=== PATIENT | male | born 1980 | race Caucasian/White ===

== ENCOUNTER 2020-01-02 16:16 | Emergency (ER) | payer BC ==
[~2020-01-02] VITALS: Ht 167.6 cm; Wt 82.3 kg
[~2020-01-02 16:16] MED LIST: ALBU18HF2 INH; ALBU8.5H8 IH; AZIT250T PO; MECL-183 PO; ONDA4TAB6 PO; ONDA8TAB13 PO; ONDA8TAB9 PO; SUMA100T PO
[2020-01-02 18:21] VITALS: BP 122/78
== END 2020-01-02 18:23 | disposition home or self-care (01) ==
LOC: ER 16:17
DX: S92.511A Displaced fracture of proximal phalanx of right lesser toe(s), initial encounter for closed fracture (principal); M79.89 Other specified soft tissue disorders; M79.674 Pain in right toe(s); J45.909 Unspecified asthma, uncomplicated; G89.29 Other chronic pain; Z87.442 Personal history of urinary calculi; Z98.890 Other specified postprocedural states; Z88.1 Allergy status to other antibiotic agents; Z91.010 Allergy to peanuts; Z91.018 Allergy to other foods; Z79.2 Long term (current) use of antibiotics; Z79.899 Other long term (current) drug therapy; X58.XXXA Exposure to other specified factors, initial encounter; Y93.89 Activity, other specified; Y92.89 Other specified places as the place of occurrence of the external cause; Y99.8 Other external cause status
CPT/HCPCS: 73630; 99283

== ENCOUNTER 2021-04-19 11:37 | Day surgery (SDC) | payer OTHER ==
[2021-04-17 11:20] LABS: EOSINOPHILS # (AUTO) 0.2 X10'3 (0-0.9); MONOCYTES # (AUTO) 0.5 X10'3 (0-0.9)
[2021-04-17 11:22] LABS: BASOPHILS # (AUTO) 0.1 X10'3 (0-0.2); BASOPHILS % (AUTO) 1.3 % (0-1); EOSINOPHILS % (AUTO) 3.4 % (0-6); LYMPHOCYTES % (AUTO) 36.4 % (21-51); MEAN CORPUSCULAR HEMOGLOBIN 29.3 PG (27.0-31.0); MEAN CORPUSCULAR HGB CONC 34.7 g/dL (33.0-36.5); MEAN CORPUSCULAR VOLUME 84.6 FL (78-98); MEAN PLATELET VOLUME 6.8 FL (7.4-10.4); MONOCYTES % (AUTO) 8.9 % (2-12); NEUTROPHILS # (AUTO) 2.7 X10'3 (1.8-7.7); PRE OP HEMATOCRIT 44.6 % (42.0-52.0); PRE OP HEMOGLOBIN 15.5 g/dL (14.0-17.9); PRE OP PLATELET COUNT 330 X10'3 (140-440); RED BLOOD COUNT 5.28 X10'6 (4.70-6.10); RED CELL DISTRIBUTION WIDTH 12.8 % (11.5-14.5)
[2021-04-17 11:39] LABS: ALBUMIN 4.2 G/DL (3.4-5.0); ALBUMIN/GLOBULIN RATIO 1.4 (1.1-1.5); ALKALINE PHOSPHATASE 87 IU/L (46-116); BLOOD UREA NITROGEN 19 MG/DL (7-18); BUN/CREATININE RATIO 19.8 (5.4-32.0); CALCIUM 8.6 MG/DL (8.5-10.1); CHLORIDE 104 MMOL/L (99-107); CREATININE 0.96 MG/DL (0.60-1.10); PRE OP ALT 36 U/L (30-65); PRE OP ANION GAP 10 (8-16); PRE OP AST 16 U/L (10-37); PRE OP GLUCOSE 101 MG/DL (70-104); PRE OP POTASSIUM 4.3 MMOL/L (3.4-5.1); PRE OP SODIUM 141 MMOL/L (135-145); TOTAL CARBON DIOXIDE 26.9 MMOL/L (24-32); TOTAL PROTEIN 7.1 G/DL (6.4-8.2); eGFR 86 ML/MIN
[2021-04-19] VITALS (17 sets, daily range): BP systolic 118–148; BP diastolic 69–98
[~2021-04-19] VITALS: Ht 167.6 cm; Wt 84.4 kg
[~2021-04-19 11:37] MED LIST changes: -ALBU18HF2 INH; -ALBU8.5H8 IH; +ASCO-407 PO; -AZIT250T PO; -MECL-183 PO; -ONDA4TAB6 PO; -ONDA8TAB13 PO; -ONDA8TAB9 PO; -SUMA100T PO; +ceFOXitin 2GM-NS 100mL ADDvant 100 ML IV ONE; +famotidine 20mg tablet PO ONE; +ringers solution, lacted 1,000 ML IV SCH
[2021-04-19] MEDS ORDERED: proCHLORperazine 10 MG/2 ml inj IV PRN (14:10)
[2021-04-19] MEDS ORDERED: ondansetron/PF 4mg/2ml inj IV PRN (14:10)
[2021-04-19] MEDS ORDERED: meperidine/PF 25mg/ml syringe IV PRN ×3 (14:10)
[2021-04-19] MEDS ORDERED: morphine 4 MG/ML inj SYRINge IV PRN (14:10)
[2021-04-19] MEDS ORDERED: ringers solution, lacted 1,000 ML IV SCH (14:10)
[2021-04-19] MEDS ORDERED: morphine 2 MG/ML inj. syringe IV PRN (14:10)
[2021-04-19] MEDS ORDERED: fentaNYL/PF 50MCG/1 ML 2ML syringe ONE ×3 (14:25→16:48)
[2021-04-19] MEDS ORDERED: midazolam 1 mg/ML 2ml injection ONE (14:25)
[2021-04-19] MEDS ORDERED: propofol inj 20 ML IV ONE (14:26)
[2021-04-19] MEDS ORDERED: rocuronium 10mg/ml inj IV ONE (14:26)
[2021-04-19] MEDS ORDERED: LIDOcaine 2% (20mg/ml) 5ml vial ONE (14:26)
[2021-04-19] MEDS ORDERED: LIDOcaine 1% 30ml preserv. free vial ONE (14:42)
[2021-04-19] MEDS ORDERED: BUPIVAcaine/PF 2.5mg/ml (0.25%) 10ml vial ONE (14:42)
[2021-04-19] MEDS ORDERED: BUPIVACAINE liposomal/PF 13.3 MG/ML vial IM ONE (14:43)
[2021-04-19] MEDS ORDERED: ketamine 50mg/5ml syringe ONE (15:08)
--- NOTE | 2021-04-19 16:03 | NUR ---
Received from OR via , accompanied by Anesthesiologist DR KRAUSE and report given by Anesthesiolgist. PT PRESENTS WITH 20 G IN LEFT AC, ABD DRESSING CLEAN DRY DRY AND INTACT, VSS. Addendum: 04/19/21 at 1629 by Bruna Kessler RN, RN Amended: Links added.
[2021-04-19] MEDS ORDERED: oxyCODONE/APAP 5-325mg tablet PO PRN (16:05)
[2021-04-19] MEDS ORDERED: dexamethasone sod phosphate 4mg/ml inj. ONE (16:20)
[2021-04-19] MEDS ORDERED: ondansetron/PF 4mg/2ml inj ONE (16:20)
[2021-04-19] MEDS ORDERED: glycopyrrolate 0.2mg/ml inj ONE (16:20)
[2021-04-19] MEDS ORDERED: neostigmine methylsulfate 1 MG/ML 10ml vial ONE (16:20)
[2021-04-19] MEDS ORDERED: acetaminophen 1,000mg/100ml IV 100 ML IV ONE (17:30)
[2021-04-19] MEDS ORDERED: sugammadex 200mg/2ml injection IV ONE (17:30)
--- NOTE | 2021-04-19 18:33 | NUR ---
D/C HOME: ALL DISCHARGE CRITERIA HAS BEEN MET. VSS, PAIN AT A TOLERABLE LEVEL, VOIDING AND ABLE TO SAFELY AMBULATE AND TRANSFER SELF. IV TAKEN OUT WITHOUT COMPLICATIONS. ALL DISCHARGE INSTRUCTIONS COVERED WITH PATIENT AND ALL QUESTIONS ANSWERED, COPY GIVEN TO PATIENT. PATIENT TAKEN OUT VIA WHEELCHAIR TO PERSONAL VEHICLE WHERE FAMILY/FRIEND DROVE PATIENT HOME. Addendum: 04/19/21 at 1851 by Bruna Kessler RN, RN Amended: Links added.
[2021-04-19] MEDS ORDERED: acetaminophen 1,000mg/100ml IV 100 ML IV SCH (20:00)
== END 2021-04-19 18:33 | disposition home or self-care (01) ==
LOC: PAS 11:37
PROVIDERS: ATTEND Surgery
DX: K43.2 Incisional hernia without obstruction or gangrene (principal); Z87.01 Personal history of pneumonia (recurrent); Z98.890 Other specified postprocedural states; Z91.010 Allergy to peanuts; Z88.1 Allergy status to other antibiotic agents; Z91.018 Allergy to other foods; Z20.822 Contact with and (suspected) exposure to COVID-19; Z79.899 Other long term (current) drug therapy
CPT/HCPCS: 49654; 64488; 80053; 82948; 85025; 87635; 93005; C1781; C9290; C9803; J0131; J0694; J1100; J2175; J2250; J2405; J2704; J2710; J3010; J3490; J7030; J7120; S2900; Z7506; Z7508; Z7512; A4215; A4618

== ENCOUNTER 2021-12-20 12:15 | Emergency (ER) | payer OTHER ==
[~2021-12-20] VITALS: Ht 170.2 cm; Wt 79.1 kg
[~2021-12-20 12:15] MED LIST changes: -ceFOXitin 2GM-NS 100mL ADDvant 100 ML IV ONE; -famotidine 20mg tablet PO ONE; -ringers solution, lacted 1,000 ML IV SCH
[2021-12-20 13:32] VITALS: BP 106/72
== END 2021-12-20 13:36 | disposition home or self-care (01) ==
LOC: ER 12:16
DX: K43.9 Ventral hernia without obstruction or gangrene (principal); G89.29 Other chronic pain; M54.9 Dorsalgia, unspecified; J45.909 Unspecified asthma, uncomplicated; Z87.442 Personal history of urinary calculi; Z91.010 Allergy to peanuts; Z88.1 Allergy status to other antibiotic agents; Z79.899 Other long term (current) drug therapy
CPT/HCPCS: 99281

== ENCOUNTER 2022-02-07 19:24 | Emergency (ER) | payer OTHER ==
[2022-02-07 19:55] LABS: BASOPHILS # (AUTO) 0.1 X10'3 (0-0.2); EOSINOPHILS # (AUTO) 0.2 X10'3 (0-0.9); EOSINOPHILS % (AUTO) 2.2 % (0-6); HEMATOCRIT 44.9 % (42.0-52.0); HEMOGLOBIN 15.2 g/dl (14.0-17.9); LYMPHOCYTES # (AUTO) 2.5 X10'3 (1.1-4.8); LYMPHOCYTES % (AUTO) 29.9 % (21-51); MEAN CORPUSCULAR HEMOGLOBIN 28.7 PG (27.0-31.0); MEAN CORPUSCULAR HGB CONC 33.8 g/dL (33.0-36.5); MEAN CORPUSCULAR VOLUME 84.8 FL (78-98); MEAN PLATELET VOLUME 6.6 FL (7.4-10.4); MONOCYTES # (AUTO) 0.6 X10'3 (0-0.9); MONOCYTES % (AUTO) 7.4 % (2-12); NEUTROPHILS % (AUTO) 59.5 % (42-75); PLATELET COUNT 343 X10'3 (140-440); RED CELL DISTRIBUTION WIDTH 13.5 % (11.5-14.5); WHITE BLOOD COUNT 8.4 X10'3 (4.5-11.0)
[2022-02-07 20:29] LABS: ALANINE AMINOTRANSFERASE 39 U/L (12-78); ALBUMIN 3.9 G/DL (3.4-5.0); ALBUMIN/GLOBULIN RATIO 1.1 (1.1-1.5); ALKALINE PHOSPHATASE 99 IU/L (46-116); ANION GAP 9 (8-16); ASPARTATE AMINO TRANSFERASE 23 U/L (10-37); BILIRUBIN,TOTAL 0.7 MG/DL (0.1-1.0); BLOOD UREA NITROGEN 22 MG/DL (7-18); BUN/CREATININE RATIO 15.8 (5.4-32.0); CALCIUM 8.8 MG/DL (8.5-10.1); CHLORIDE 105 MMOL/L (99-107); CREATININE 1.39 MG/DL (0.60-1.10); GLUCOSE 136 MG/DL (70-104); POTASSIUM 3.5 MMOL/L (3.5-5.1); SODIUM 140 MMOL/L (135-145); TOTAL CARBON DIOXIDE 26.1 MMOL/L (24-32); TOTAL PROTEIN 7.4 G/DL (6.4-8.2); eGFR 56 ML/MIN
[2022-02-07] MEDS ORDERED: PANT-47 PO (21:49)
[2022-02-07 22:08] VITALS: BP 108/73
== END 2022-02-07 22:13 | disposition home or self-care (01) ==
LOC: ER 19:25
DX: R07.9 Chest pain, unspecified (principal); R10.9 Unspecified abdominal pain; G89.29 Other chronic pain; M54.9 Dorsalgia, unspecified; J45.909 Unspecified asthma, uncomplicated; Z87.442 Personal history of urinary calculi; Z91.010 Allergy to peanuts; Z88.1 Allergy status to other antibiotic agents; Z79.899 Other long term (current) drug therapy
CPT/HCPCS: 36415; 71045; 80053; 83880; 84484; 85025; 93005; 99285

== ENCOUNTER 2022-05-20 09:50 | Emergency (ER) | payer OTHER ==
[~2022-05-20] VITALS: Ht 167.6 cm; Wt 79.5 kg
[~2022-05-20 09:50] MED LIST changes: +PANT-47 PO
[2022-05-20 15:05] VITALS: BP 136/90
[2022-05-20 15:59] LABS: CLARITY,URINE CLEAR (Clear); COLOR,URINE YELLOW (Yellow); GLUCOSE, URINE NEGATIVE (Neg); KETONES,URINE NEGATIVE (Neg); LEUKOCYTE ESTERASE ,URINE NEGATIVE (Neg); NITRITES, URINE NEGATIVE (Neg); OCCULT BLOOD,URINE NEGATIVE (Neg); PROTEIN,URINE NEGATIVE (Neg); UROBILINOGEN,URINE 0.2 E.U/dL (0.2-1.0)
[2022-05-20 16:06] LABS: UA COLLECTION TYPE CLN CATCH MIDSTREAM
[2022-05-20 16:59] LABS: BASOPHILS # (AUTO) 0.1 X10'3 (0-0.2); BASOPHILS % (AUTO) 1.3 % (0-1); EOSINOPHILS # (AUTO) 0.1 X10'3 (0-0.9); EOSINOPHILS % (AUTO) 1.8 % (0-6); HEMATOCRIT 46.9 % (42.0-52.0); HEMOGLOBIN 15.6 g/dl (14.0-17.9); LYMPHOCYTES # (AUTO) 1.7 X10'3 (1.1-4.8); LYMPHOCYTES % (AUTO) 26.4 % (21-51); MEAN CORPUSCULAR HEMOGLOBIN 28.4 PG (27.0-31.0); MEAN CORPUSCULAR HGB CONC 33.2 g/dL (33.0-36.5); MEAN CORPUSCULAR VOLUME 85.5 FL (78-98); MEAN PLATELET VOLUME 6.8 FL (7.4-10.4); MONOCYTES # (AUTO) 0.4 X10'3 (0-0.9); MONOCYTES % (AUTO) 6.1 % (2-12); NEUTROPHILS # (AUTO) 4.1 X10'3 (1.8-7.7); NEUTROPHILS % (AUTO) 64.4 % (42-75); PLATELET COUNT 324 X10'3 (140-440); RED BLOOD COUNT 5.49 X10'6 (4.70-6.10); RED CELL DISTRIBUTION WIDTH 14.1 % (11.5-14.5); WHITE BLOOD COUNT 6.3 X10'3 (4.5-11.0)
[2022-05-20 17:05] LABS: ALANINE AMINOTRANSFERASE 25 U/L (12-78); ALBUMIN 4.3 G/DL (3.4-5.0); ALBUMIN/GLOBULIN RATIO 1.3 (1.1-1.5); ALKALINE PHOSPHATASE 93 IU/L (46-116); ANION GAP 6 (8-16); ASPARTATE AMINO TRANSFERASE 18 U/L (10-37); BILIRUBIN,TOTAL 1.1 MG/DL (0.1-1.0); BLOOD UREA NITROGEN 12 MG/DL (7-18); BUN/CREATININE RATIO 13.8 (5.4-32.0); CALCIUM 9.1 MG/DL (8.5-10.1); CHLORIDE 104 MMOL/L (99-107); CREATININE 0.87 MG/DL (0.60-1.10); GLUCOSE 95 MG/DL (70-104); POTASSIUM 3.7 MMOL/L (3.5-5.1); SODIUM 140 MMOL/L (135-145); TOTAL CARBON DIOXIDE 29.7 MMOL/L (24-32); TOTAL PROTEIN 7.6 G/DL (6.4-8.2); eGFR > 90 ML/MIN
== END 2022-05-20 18:48 | disposition home or self-care (01) ==
LOC: ER 09:50
DX: H92.01 Otalgia, right ear (principal); N50.811 Right testicular pain; J45.909 Unspecified asthma, uncomplicated; G89.29 Other chronic pain; M54.9 Dorsalgia, unspecified; Z87.442 Personal history of urinary calculi; Z91.010 Allergy to peanuts; Z88.1 Allergy status to other antibiotic agents; Z88.6 Allergy status to analgesic agent
CPT/HCPCS: 36415; 76770; 76870; 80053; 81003; 85025; 93976; 99284

== ENCOUNTER 2022-12-01 10:35 | Emergency (ER) | payer OTHER ==
[~2022-12-01] VITALS: Ht 167.6 cm; Wt 76.8 kg
[2022-12-01 10:48] VITALS: BP 111/81; PULSE 74; RESP 18; TEMP 98.4; O2SAT 98
[2022-12-01] MEDS ORDERED: iohexol 300mg/ml 100ml inj. ONE (11:35)
--- NOTE | 2022-12-01 11:44 | NUR ---
pt states last time he had contrast his throat closed up and he needed medication. new allergy added
== END 2022-12-01 13:07 | disposition home or self-care (01) ==
LOC: ER 10:36
DX: R10.9 Unspecified abdominal pain (principal); J45.909 Unspecified asthma, uncomplicated; Z91.010 Allergy to peanuts; Z91.041 Radiographic dye allergy status; Z91.018 Allergy to other foods; Z79.899 Other long term (current) drug therapy
CPT/HCPCS: 74176; 99284; J3490; Q9967

== ENCOUNTER 2024-03-17 12:20 | Emergency (ER) | payer SELFPAY ==
[~2024-03-17] VITALS: Ht 167.6 cm; Wt 81.9 kg
[2024-03-17 12:26] VITALS: BP 127/75; PULSE 81; RESP 18; O2SAT 95
[2024-03-17 13:05] VITALS: TEMP 97.8
== END 2024-03-17 13:03 | disposition home or self-care (01) ==
LOC: ER 12:21
DX: L02.818 Cutaneous abscess of other sites (principal); J45.909 Unspecified asthma, uncomplicated; G89.29 Other chronic pain; M54.9 Dorsalgia, unspecified; Z09 Encounter for follow-up examination after completed treatment for conditions other than malignant neoplasm; Z98.890 Other specified postprocedural states; Z88.1 Allergy status to other antibiotic agents; Z91.010 Allergy to peanuts; Z91.018 Allergy to other foods; Z79.899 Other long term (current) drug therapy
CPT/HCPCS: 10060; 10080; 99282; A6449

== ENCOUNTER 2024-07-16 09:35 | Emergency (ER) | payer OTHER ==
[~2024-07-16] VITALS: Ht 167.6 cm; Wt 81.5 kg
[~2024-07-16 09:35] MED LIST changes: -ASCO-407 PO; -PANT-47 PO; +PANT40TA54 PO
[2024-07-16 09:43] VITALS: TEMP 98
--- NOTE | 2024-07-16 09:51 | ELECTROCARDIOGRAPH REPORT ---
[facility] Test Date: 2024-07-16 Test Time: 09:50:16 Pat Name: GRETCHEN REDDY Department: [facility]- Patient ID: [id number] Room: Gender: M Skiver Heel Tap: : 1980 Requested By: LAKIA NASCIMENTO Order Number: [id number] Reading MD: Dr. Pola Hadley Measurements Intervals [place] Rate: 79 P: 75 SD: 120 QRS: 53 QRSD: 100 T: 4 QT: 368 QTc: 422 Interpretive Statements Sinus rhythm Electronically Signed On 07-16-2024 22:15:[address] Pola Hadley Please click the below link to view image of tracing.
[2024-07-16 10:07] LABS: BASOPHILS # (AUTO) 0.3 X10'3 (0-0.2); BASOPHILS % (AUTO) 3.8 % (0-1); EOSINOPHILS # (AUTO) 0.2 X10'3 (0-0.9); EOSINOPHILS % (AUTO) 2.4 % (0-6); HEMOGLOBIN 15.9 g/dl (14.0-17.9); LYMPHOCYTES # (AUTO) 2.2 X10'3 (1.1-4.8); LYMPHOCYTES % (AUTO) 26.6 % (21-51); MEAN CORPUSCULAR HEMOGLOBIN 28.6 PG (27.0-31.0); MEAN CORPUSCULAR HGB CONC 34.6 g/dL (33.0-36.5); MEAN CORPUSCULAR VOLUME 82.6 FL (78-98); MEAN PLATELET VOLUME 6.6 FL (7.4-10.4); MONOCYTES # (AUTO) 0.5 X10'3 (0-0.9); MONOCYTES % (AUTO) 6.4 % (2-12); NEUTROPHILS # (AUTO) 4.9 X10'3 (1.8-7.7); NEUTROPHILS % (AUTO) 60.8 % (42-75); PLATELET COUNT 330 X10'3 (140-440); RED BLOOD COUNT 5.57 X10'6 (4.70-6.10); RED CELL DISTRIBUTION WIDTH 13.5 % (11.5-14.5); WHITE BLOOD COUNT 8.1 X10'3 (4.5-11.0)
--- NOTE | 2024-07-16 10:13 | RADIOLOGY REPORT ---
CLINICAL INFORMATION: Chest pain. TECHNIQUE: Single AP portable chest radiograph was obtained. COMPARISON: CHEST,SINGLE VIEW on DOS: 02/07/22 FINDINGS: Lungs: Clear. Cardiac: Heart size is within normal limits. Pulmonary vasculature: Unremarkable. Mediastinum/grace: Unremarkable. Bones: No acute osseous abnormality identified. Other: No other significant findings. IMPRESSION: No evidence of acute disease in the chest.
[2024-07-16 10:23] LABS: ALANINE AMINOTRANSFERASE 29 U/L (12-78); ALBUMIN/GLOBULIN RATIO 1.3 (1.1-1.5); ALKALINE PHOSPHATASE 82 IU/L (46-116); ANION GAP 9 (8-16); ASPARTATE AMINO TRANSFERASE 13 U/L (10-37); BILIRUBIN,TOTAL 1.5 MG/DL (0.1-1.0); BLOOD UREA NITROGEN 24 MG/DL (7-18); BUN/CREATININE RATIO 27.9 (10.0-20.0); CALCIUM 8.5 MG/DL (8.5-10.1); CHLORIDE 105 MMOL/L (99-107); CREATININE 0.86 MG/DL (0.60-1.10); GLUCOSE 106 MG/DL (70-104); LIPASE 60 U/L (16-77); POTASSIUM 4.1 MMOL/L (3.5-5.1); SODIUM 139 MMOL/L (135-145); TOTAL CARBON DIOXIDE 25.4 MMOL/L (24-32); TOTAL PROTEIN 7.2 G/DL (6.4-8.2); eCRCL 97 ML/MIN; eGFR > 90 ML/MIN
[2024-07-16 11:01] LABS: BILIRUBIN,URINE NEGATIVE (Neg); CLARITY,URINE CLEAR (Clear); COLOR,URINE YELLOW (Yellow); GLUCOSE, URINE NEGATIVE (Neg); KETONES,URINE NEGATIVE (Neg); LEUKOCYTE ESTERASE ,URINE NEGATIVE (Neg); NITRITES, URINE NEGATIVE (Neg); OCCULT BLOOD,URINE NEGATIVE (Neg); PROTEIN,URINE NEGATIVE (Neg); UROBILINOGEN,URINE 0.2 E.U/dL (0.2-1.0)
--- NOTE | 2024-07-16 11:05 | Physician Documentation ---
History of Present Illness ~ Chief Complaint: Chest Pain Stated Complaint: COUGHING CP Time Seen by MD: 10:32 OK to notify your PCP?: Yes Primary Medical Doctor: [facility] Source: patient Mode of Arrival: POV Exam Limitations: no limitations HPI 44-year-old male who is here with chest pain, cough, pain when he presses on his sternum, right upper quadrant abdominal pain, back pain. Patient states, I am concerned that I may have a blood clot or lung cancer or a problem with my pancreas or a problem with my gallbladder or a problem with my heart. Patient states how could I have costochondritis for four months. Patient reports he has had numerous CT scans with IV contrast, abdominal ultrasounds, HIDA scan, upper endoscopy, colonoscopy and all have been fairly normal. He states his upper endoscopy showed very mild gastritis. he is wondering if the very mild gastritis could be causing swelling in his chest and causing her to feel short of breath. He is also wondering if it could be a hiatal hernia that is causing his symptoms. Patient denies fever, chills, vomiting, changes in his bowel habits. Medication Reconciliation Allergies: Coded Allergies: peanut (Verified Allergy, Severe, SWELLING, HIVES, 07/16/24) erythromycin base (Verified Allergy, Unknown, 07/16/24) wheat (Verified Allergy, Unknown, 07/16/24) Uncoded Allergies: CONTRAST (Allergy, Severe, 12/01/22) Scheduled Pantoprazole Sodium (Pantoprazole Sodium), 40 MG PO DAILY Past Medical History Past Medical History: No Pertinent History, Asthma, Hernia, Kidney Stones, Chronic Back Pain Past Surgical History: abdominal surgery, orthopedic surgeries, other Other Past Surgical History: Sinus surgery, hernia repair, neck surgery Alcohol Use: None Drug Use: none Lives with: Family Lives In: Home Review of Systems All Other Systems at this time: Reviewed and Negative Physical Exam Vital Signs: Temperature: 98.0, Source: Temporal, Heart Rate: 79, Respiratory Rate: 16, BP: 110/74, Pulse Oximetry: 98, Weight: 81.500 Oxygen Flow Rate: 0 Physical Exam GENERAL: Alert, no acute distress. HEENT: NCAT, EOMI, PERRL, normal oropharynx, moist oral mucosa. NECK: Supple, trachea midline. CARDIAC: Regular rate and rhythm, no murmurs, rubs, or gallops. Equal distal pulses. No lower extremity edema, cap refill less than 2 seconds. RESPIRATORY: Equal breath sounds, clear to auscultation bilaterally, no respiratory distress. GASTROINTESTINAL: Non distended, soft, nontender, No guarding or rebound. MUSCULOSKELETAL: TTP OVER RIGHT COSTOSTERNAL BORDER. Normal range of motion, nontender, no swelling. Normal gait. NEUROLOGICAL: Awake, alert, and oriented x 3. SKIN: Warm/dry, no pallor, no rash. PSYCH: Alert and appropriate. Affect congruent with mood. Speech is clear. Good eye contact. Progress Results/Orders Results/Orders Vital Signs 07/16/24 07/16/24 07/16/24 09:43 10:32 10:58 Temp 98.0 Pulse 70 79 Resp 16 16 B/P (MAP) 109/79 110/74 (86) Pulse Ox 98 98 O2 Flow Rate 0 Laboratory Tests Test 07/16/24 09:54 07/16/24 10:38 White Blood Count 8.1 Red Blood Count 5.57 Hemoglobin 15.9 Hematocrit 46.0 Mean Corpuscular Volume 82.6 Mean Corpuscular Hemoglobin 28.6 Mean Corpuscular Hemoglobin Concent 34.6 Red Cell Distribution Width 13.5 Platelet Count 330 Mean Platelet Volume 6.6 L Neutrophils (%) (Auto) 60.8 Lymphocytes (%) (Auto) 26.6 Monocytes (%) (Auto) 6.4 Eosinophils (%) (Auto) 2.4 Basophils (%) (Auto) 3.8 H Neutrophils # (Auto) 4.9 Lymphocytes # (Auto) 2.2 Monocytes # (Auto) 0.5 Eosinophils # (Auto) 0.2 Basophils # (Auto) 0.3 H CBC Comment Sodium Level 139 Potassium Level 4.1 Chloride Level 105 Carbon Dioxide Level 25.4 Anion Gap 9 Blood Urea Nitrogen 24 H Creatinine 0.86 Estimated GFR/1.73 m2 > 90 BUN/Creatinine Ratio 27.9 H Glucose Level 106 H Calcium Level 8.5 Total Bilirubin 1.5 H Aspartate Amino Transf (AST/SGOT) 13 Alanine Aminotransferase (ALT/SGPT) 29 Alkaline Phosphatase 82 Troponin I High Sensitivity 5 Total Protein 7.2 Albumin 4.0 Globulin 3.2 Albumin/Globulin Ratio 1.3 Lipase 60 Chemistry Comments Urine Comment Medical Decision Making Heart Score: 0 Differential Dx:Considerations: Include: angina, aortic dissection, chest wall pain, cholelithiasis, CHF, costochondritis, esophageal reflux/spasm, gastritis, herpes zoster, myocardial infarction, pericarditis, pleuritis, pancreatitis, pneumonia, pneumothorax, pulmonary embolus, other Additional Information PATIENT HAS NUMEROUS SYMPTOMS INVOLVING DIFFERENT BODY SYSTEMS AND THESE SYSTEMS SOUND LIKE THEY HAVE ALL BEEN EVALUATED WITH NUMEROUS DIFFERENT STUDIES INCLUDING CT SCANS, ULTRASOUNDS, HIDA SCANS, UPPER ENDOSCOPY, COLONOSCOPY. PATIENT DOES NOT HAVE ANY NEW SYMPTOM TODAY TO WARRANT WORKING HIM UP AGAIN FOR BILIARY COLIC, PULMONARY EMBOLISM. HIS LABS WHERE UNREMARKABLE ALONG WITH CHEST XRAY. SUSPECT PATIENT MAY HAVE GENERALIZED ANXIETY OR CONVERSION DISORDER. Departure Time of Disposition: 11:05 Disposition: 01 HOME / SELF CARE / HOMELESS Impression: Primary Impression: Chest pain Qualified Codes: R07.1 - Chest pain on breathing Condition: Stable Discharge Instructions: Nonspecific Chest Pain, Adult Additional Instructions: F/U WITH PCP WHO HAS BEEN WORKING WITH YOU TO TRY TO DETERMINE UNDERLYING CAUSE OF YOUR SYMPTOMS AT THIS TIME THERE IS NOT ANY EVIDENCE FOR ANY URGENT OR EMERGENT ISSUE IF WORSENING OF SYMPTOMS, RETURN TO ER FOR REASSESSMENT Departure Forms: Excuse form Work or School Excused From: Work Excuse beginning now through the following date: July 16, 2024 May Return but still avoid physical Activity from now until: July 17, 2024 Referrals: NO PRIMARY CARE PROVIDER (PCP) Education Educated: Patient Educated regarding: diagnosis, treatment, need for follow up Signature Scribe Signature: X Attestation: JYOTI BORGES July 16, 2024 11:05
[2024-07-16 11:27] LABS: UA COLLECTION TYPE VOIDED
[2024-07-16 12:12] VITALS: BP 126/82; PULSE 65; RESP 16; O2SAT 98
== END 2024-07-16 11:35 | disposition home or self-care (01) ==
LOC: ER 09:36
DX: R07.89 Other chest pain (principal); Z88.1 Allergy status to other antibiotic agents; Z98.890 Other specified postprocedural states; Z91.010 Allergy to peanuts; Z79.899 Other long term (current) drug therapy; Z87.442 Personal history of urinary calculi
CPT/HCPCS: 71045; 80053; 81003; 83690; 84484; 85025; 93005; 99285

== ENCOUNTER 2024-09-02 14:53 | Emergency (ER) | payer OTHER ==
[~2024-09-02] VITALS: Ht 167.6 cm; Wt 80.9 kg
[2024-09-02 15:11] VITALS: BP 120/80; PULSE 75; RESP 16; TEMP 98.2; O2SAT 98
--- NOTE | 2024-09-02 16:44 | Physician Documentation ---
History of Present Illness ~ Chief Complaint: Cold, cough & congestion Stated Complaint: CP/COUGH Time Seen by MD: 15:22 Primary Medical Doctor: [facility] Source: patient, RN/MD HPI Patient is seen today with complaints of left-sided rib pain and chronic cough off and on over the last few months has well as postnasal drip and sore throat. Patient denies any shortness of breath or abdominal pain or nausea, vomiting, diarrhea. Patient has no other concern or complaint at this time. Patient also states he did recently take a Z-Gino for a positive rapid strep. Medication Reconciliation Allergies: Coded Allergies: peanut (Verified Allergy, Severe, SWELLING, HIVES, 07/16/24) erythromycin base (Verified Allergy, Unknown, 07/16/24) wheat (Verified Allergy, Unknown, 07/16/24) Uncoded Allergies: CONTRAST (Allergy, Severe, 12/01/22) Scheduled Pantoprazole Sodium (Pantoprazole Sodium), 40 MG PO DAILY Past Medical History Past Medical History: No Pertinent History, Asthma, Hernia, Kidney Stones, Chronic Back Pain Past Surgical History: abdominal surgery, orthopedic surgeries, other Other Past Surgical History: Sinus surgery, hernia repair, neck surgery Alcohol Use: None Drug Use: none Lives with: Family Lives In: Home Review of Systems Constitutional: Denies: chills, fever, weakness Eyes: Denies: pain, blurred vision ENT: Denies: ear pain, nose pain, throat pain, mouth pain Respiratory: Denies: cough, shortness of breath Cardiovascular: Denies: chest pain, palpitations Gastrointestinal: Denies: abdominal pain, nausea, vomiting Genitourinary: Denies: burning, dysuria Male Genitalia: Denies: penile discharge, testicular pain Neurological: Denies: headache, dizziness Musculoskeletal: Denies: pain, swelling Integumentary: Denies: rash, lesions Allergic/Immunologic: Denies: hives, itching Hematologic/Lymphatic: Denies: no symptoms reported Psychiatric: Denies: depression, anxiety Physical Exam Vital Signs: Temperature: 98.2, Source: Temporal, Heart Rate: 75, Respiratory Rate: 16, BP: 120/80, Pulse Oximetry: 98, Weight: 80.900 Oxygen Flow Rate: 0 Physical Exam General: Awake and Alert, no acute distress. HEENT: On exam patient has erythema and very mild swelling of the right tonsil, patient has small tonsils on exam. Patient has significant cobblestoning of the posterior oropharynx. I do not appreciate any exudate or tonsil stones. PERRLA, EOM intact bilaterally. I do not appreciate any posterior or anterior cervical lymphadenopathy. Conjunctiva pink, Sclera clear, Mucus Membranes moist. Neck: Supple without masses and tenderness. Resp: Unlabored. Lungs clear to auscultation bilaterally. Heart: Regular Rate and rhythm, normal S1 and S2 without murmur, rub or gallop. Extremities: No cyanosis,clubbing or edema. Skin: Warm and Dry. Progress Results/Orders Results/Orders Vital Signs 09/02/24 15:11 Temp 98.2 Pulse 75 Resp 16 B/P (MAP) 120/80 Pulse Ox 98 O2 Flow Rate 0 Medical Decision Making Findings Patient is seen today with complaints of left-sided rib pain and chronic cough off and on over the last few months has well as postnasal drip and sore throat. Patient denies any shortness of breath or abdominal pain or nausea, vomiting, diarrhea. Patient has no other concern or complaint at this time. States he has not appointment with the ENT specialist this week. Patient will follow up with chiropractor or physical therapy for further eval and treatment of rib pain/anterior wall chest pain. Patient will keep appointment with ENT specialist this week. Patient will return to ED with any worsening, concerning or changing symptoms. Departure Disposition: HOME / SELF CARE / HOMELESS Impression: Primary Impression: Cough Qualified Codes: R05.3 - Chronic cough Additional Impression: Costochondral chest pain Condition: Stable Discharge Instructions: Cough, Adult Additional Instructions: Patient will follow up with chiropractor or physical therapy for further eval and treatment of rib pain/anterior wall chest pain. Patient will keep appointment with ENT specialist this week. Patient will return to ED with any worsening, concerning or changing symptoms. Referrals: NO PRIMARY CARE PROVIDER (PCP) Signature Scribe Signature: No scribe Attestation: No scribe NANCY LEWIS PAC Sep 02, 2024 16:43
== END 2024-09-02 18:28 | disposition home or self-care (01) ==
LOC: ER 14:54
DX: R05.9 Cough, unspecified (principal); R07.1 Chest pain on breathing; J45.909 Unspecified asthma, uncomplicated; Z98.890 Other specified postprocedural states; Z88.1 Allergy status to other antibiotic agents; Z91.018 Allergy to other foods; Z79.899 Other long term (current) drug therapy; Z87.442 Personal history of urinary calculi
CPT/HCPCS: 99281; 99282

== ENCOUNTER → 2025-01-21 | Emergency (ER) | payer OTHER ==
[~2025-01-21] VITALS: Ht 167.6 cm; Wt 65.0 kg
[~2025-01-21] MED LIST changes: +iohexol 300mg/ml 100ml inj. ONE
[2025-01-21 09:46] VITALS: BP 122/88; PULSE 87; TEMP 96.8; O2SAT 99
[2025-01-21 10:13] LABS: MEAN PLATELET VOLUME 6.9 FL (7.4-10.4); RED CELL DISTRIBUTION WIDTH 13.0 % (11.5-14.5)
[2025-01-21 10:27] LABS: CREATININE 1.06 MG/DL (0.60-1.10); TOTAL CARBON DIOXIDE 27.5 MMOL/L (24-32); eCRCL 79 ML/MIN; eGFR 75 ML/MIN
--- NOTE | 2025-01-21 10:28 | Physician Documentation ---
History of Present Illness ~ General Chief Complaint: Back Pain Stated Complaint: ABD PAIN Time Seen by MD: 09:57 OK to notify your PCP?: Yes Primary Medical Doctor: [facility] Source: patient Mode of Arrival: POV Exam Limitations: no limitations History of Present Illness Initial Comments This is a 44-year-old male who comes in with multiple complaints. The patient states he has been having ongoing abdominal pain mostly in his right upper quadrant radiating to his back. He has had multiple workups including CT scans with IV contrast, JOSE ALFREDO scans and ultrasounds. None of whichever show any concerning findings. He has not no history of gallstones. He recently had a colonoscopy in his follow up by a grocery shopper. He says it colonoscopies only showed diverticulosis. Today his main complaint is pain in his mid back of the mid to lower thoracic area. He states that is at times will radiate around to the front and he gets pins and needles in the right upper quadrant of the abdomen not passing in the midline. He denies nausea vomiting diarrhea. He denies dark tarry or bloody stools. He denies fevers or chills. Since arriving to the ER he is not complaining of right lower quadrant abdominal pain. Medication Reconciliation Allergies: Coded Allergies: peanut (Verified Allergy, Severe, SWELLING, HIVES, 01/21/25) erythromycin base (Verified Allergy, Unknown, 01/21/25) wheat (Verified Allergy, Unknown, 01/21/25) Uncoded Allergies: CONTRAST (Allergy, Severe, 12/01/22) Scheduled Pantoprazole Sodium (Pantoprazole Sodium), 40 MG PO DAILY Past Medical History Past Medical History: No Pertinent History, Asthma, Hernia, Kidney Stones, Microbiology Technician morteza Back Pain Past Surgical History: abdominal surgery, orthopedic surgeries, other Other Past Surgical History: Sinus surgery, hernia repair, neck surgery Alcohol Use: None Drug Use: none Lives with: Family Lives In: Home Physical Exam Physical Exam Vital Signs: Temperature: 96.8, Source: Temporal, Heart Rate: 87, Respiratory Rate: 15, BP: 122/88, Pulse Oximetry: 99, Weight: 65.000 Pulse Oximetry Reflects: adequate oxygenation General Appearance: alert, WD/WN, no apparent distress Gastrointestinal To inspection of the abdomen no obvious distention or guarding of the abdomen. Negative Mehta's sign. There is tenderness to palpation of the right quadrant at the area of McBurney's point. No rigidity, rebound or guarding x4 quadrants. Back There is tenderness to palpation of the paraspinal muscles of the midthoracic spine with the area of T6. No midline step-off deformity or point tenderness. Pain with the back was reproducible with the repositioning the patient on the gurney for exam. He complain of spasm in the area of pain. Skin: normal color, warm/dry Progress Results/Orders Reviewed/noted all lab results: Yes Results/Orders Orders - MANNY SHULTZ Ct Chest Abdomen Pelvis Iv Con (01/21/25 10:23) Completed Orders - MANNY SHULTZ Ct Chest Abdomen Pelvis Iv Con (01/21/25 10:23) Iohexol 300mg/Ml 100ml Inj. (Omnipaque-3 (01/21/25 11:20) Vital Signs 01/21/25 01/21/25 09:46 10:17 Temp 96.8 Pulse 87 Resp 15 B/P (MAP) 122/88 Pulse Ox 99 Laboratory Tests Test 01/21/25 09:53 01/21/25 10:00 White Blood Count 7.9 Red Blood Count 5.64 Hemoglobin 16.5 Hematocrit 47.8 Mean Corpuscular Volume 84.8 Mean Corpuscular Hemoglobin 29.3 Mean Corpuscular Hemoglobin Concent 34.6 Red Cell Distribution Width 13.0 Platelet Count 375 Mean Platelet Volume 6.9 L Neutrophils (%) (Auto) 48.6 Lymphocytes (%) (Auto) 37.8 Monocytes (%) (Auto) 8.6 Eosinophils (%) (Auto) 3.5 Basophils (%) (Auto) 1.5 H Neutrophils # (Auto) 3.8 Lymphocytes # (Auto) 3.0 Monocytes # (Auto) 0.7 Eosinophils # (Auto) 0.3 Basophils # (Auto) 0.1 CBC Comment Sodium Level 136 Potassium Level 4.0 Chloride Level 101 Carbon Dioxide Level 27.5 Anion Gap 8 Blood Urea Nitrogen 21 H Creatinine 1.06 Estimated GFR/1.73 m2 75 BUN/Creatinine Ratio 19.8 Glucose Level 112 H Calcium Level 8.8 Total Bilirubin 0.7 Aspartate Amino Transf (AST/SGOT) 20 Alanine Aminotransferase (ALT/SGPT) 32 Alkaline Phosphatase 103 Total Protein 7.7 Albumin 4.1 Globulin 3.6 Albumin/Globulin Ratio 1.1 Lipase 89 H Chemistry Comments Urine Specimen Description Cln catch midstream Urine Color Yellow Urine Clarity Clear Urine pH 6.0 Urine Specific [place] <=1.005 Urine Protein Negative Urine Glucose (UA) Negative Urine Ketones Negative Urine Occult Blood Negative Urine Nitrite Negative Urine Bilirubin Negative Urine Urobilinogen 0.2 Urine Leukocyte Esterase Negative Urine Culture Indicated Not ind Volume Urine Centrifuged 10 ml Urine Comment EKG/XRAY/CT/US/VASC/MRI CT : Interpreted By: self CT: abdomen/pelvis Impression CT abdomen and pelvis with IV contrast interpreted by me: No acute intra- abdominal etiologies. No bowel obstruction. No inflammatory process. Increased fecal burden. Medical Decision Making Additional information obtaine: N/A Findings The patient's workup was all completely with a normal limits. There is a slight elevation of the lipase but not significantly so at 89. He is not 3 times over the normal limits to diagnose pancreatitis. His pain all seems to be coming from his back in his reproducible with movement. I spoke at length with the patient as he had multiple questions and seems very anxious. I also highly suspect irritable bowel syndrome to be a differential. I gave the patient Toradol and Zofran before he left for his back pain. I instructed him take ibuprofen for the pain. I also instructed him to try MiraLax once a day and Colace twice a day. Increase p.o. water and fruits and vegetables. Follow up back up with the primary care physician. Return to the ER for any worsening or concerning symptoms Differential Diagnosis Musculoskeletal back pain. Thoracic disc herniation with radiculopathy. Low clinical suspicion for intra-abdominal etiology or acute surgical abdomen Departure Disposition: 01 HOME / SELF CARE / HOMELESS Impression: Primary Impression: Thoracic radiculopathy Additional Impression: Nonspecific abdominal pain Condition: Stable Discharge Instructions: Radicular Pain Additional Instructions: Take ibuprofen for pain and I suggest a MiraLax once a day and Colace twice a day for constipation. Drink lots of water he plenty of fruits and vegetables. Follow up with the primary care physician for further outpatient care. Return to the ER for any worsening or concerning symptoms. Departure Forms: Excuse form Work or School Additional Instructions: Excused from work from 01/18/2025 through 01/22/2025 Referrals: NO PRIMARY CARE PROVIDER (PCP) Signature Scribe Signature: No scribe Attestation: The note accurately reflects work and decisions made by me.Manny HARMON 01/21/25 12:56 MANNY SHULTZ Jan 21, 2025 10:28
[2025-01-21 10:44] LABS: LEUKOCYTE ESTERASE ,URINE NEGATIVE (Neg); NITRITES, URINE NEGATIVE (Neg); OCCULT BLOOD,URINE NEGATIVE (Neg)
[2025-01-21 10:49] LABS: UA COLLECTION TYPE CLN CATCH MIDSTREAM
--- NOTE | 2025-01-21 12:11 | RADIOLOGY REPORT ---
CLINICAL HISTORY: Right lower quadrant abdominal pain TECHNIQUE: CT of the chest, abdomen, and pelvis was performed with IV contrast. Coronal and sagittal reformatted images were performed for better depiction of the anatomy. This exam was performed according to our departmental dose optimization program. Up-to-date CT equipment and radiation dose reduction techniques are utilized as appropriate. CTDI 15.7 DLP 872 COMPARISON: DI CHEST,SINGLE VIEW on DOS: 07/16/24, DI CHEST,TWO VIEWS on DOS: 06/16/24, CT CT ABDOMEN PELVIS on DOS: 12/01/22 FINDINGS: CHEST: The thoracic aorta is normal in course and caliber. There are no significant atherosclerotic calcifications. The heart is normal in size. No pericardial effusion is seen. No enlarged mediastinal, hilar, or axillary lymph node is present. The central airways are patent. There is no bronchiectasis. There is no suspicious pulmonary nodule or area of consolidation There is no pleural effusion present. ABDOMEN/PELVIS: The spleen, pancreas, adrenal glands, gallbladder, kidneys, bladder, and prostate gland are unremarkable. There is a left hepatic lobe cyst. The abdominal aorta is normal in course and caliber. There are no significant atherosclerotic calcifications. There is no free intraperitoneal air or fluid. There is no enlarged abdominal or pelvic lymph node. There is no bowel wall thickening or dilatation. The appendix is normal. BONES: No acute osseous abnormality is evident. IMPRESSION: No acute CT abnormality of the chest, abdomen, or pelvis.
[2025-01-21] MEDS: ondansetron/PF 4mg/2ml inj IV ONE (13:03)
[2025-01-21 13:04] VITALS: RESP 16
[2025-01-21] MEDS: ketorolac trometh 15mg/ml vial 15 MG/ML ML IV ONE (13:04)
== END | disposition home or self-care (01) ==
LOC: ER 09:34
DX: M54.14 Radiculopathy, thoracic region (principal); R10.11 Right upper quadrant pain; Z88.1 Allergy status to other antibiotic agents; Z91.010 Allergy to peanuts; Z98.890 Other specified postprocedural states
CPT/HCPCS: 36415; 71260; 74177; 80053; 81003; 83690; 85025; 96374; 96375; 99285; J1885; J2405; Q9967